=== PATIENT | male | born 1965 | race Caucasian/White ===

== ENCOUNTER 2019-05-07 17:09 | Emergency (ER) | payer SELFPAY ==
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
--- NOTE | 2019-05-08 13:19 | PRG ---
DATE OF SERVICE: I am following up on the consultation last night. Mr. Londono is a 53-year-old gentleman, sent to the emergency department for the acute recognition of a chronic problem. He presented to the Neurology office and was felt to have either cervical radiculopathy or myelopathy and sent for imaging. Imaging study was done at [facility] showing cord compression, which alerted the radiologist, who alerted the Neurology Team. Neurology Team told the patient to go to the emergency department. On careful history taking and examination, there has been no acute decline in the past number of weeks. This is a chronic worsening problem, that has taken 20 to 25 years to developed. 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 Surgical decompression is warranted. There is no new deficit now, though it was not present in the past few weeks. The patient can be placed in a collar, given Decadron and Protonix, and seen in the office in 10 days. An appointment has been scheduled, and we will plan a surgical intervention thereafter. Job ID: [id number]
== END 2019-05-07 23:33 | disposition home or self-care (01) ==
LOC: ERS 17:09
DX: M50.20 Other cervical disc displacement, unspecified cervical region (principal)
CPT/HCPCS: 99283